=== PATIENT | male | born 1995 ===

== ENCOUNTER → 2023-09-21 | Outpatient (CLI) | payer BC ==
[2023-09-21 19:40] LABS: Prostate Specific Antigen 0.598 ng/mL (0.000-4.000)
== END ==
LOC: LAB SHORT 18:23 → LAB 18:23
PROVIDERS: Hospitalist
DX: Z12.5 Encounter for screening for malignant neoplasm of prostate (principal)
CPT/HCPCS: G0103

== ENCOUNTER → 2024-02-25 | Outpatient (CLI) | payer BC ==
[2024-03-02 17:15] LABS: TESTOSTERONE, FREE BY DIALYSIS 60.4 pg/mL (47.0-244.0); TESTOSTERONE, TOTAL MASS SPEC 240.5 ng/dL (300.0-1080.0)
== END ==
LOC: LAB SHORT 14:47 → LAB 14:47
PROVIDERS: Hospitalist
DX: E29.1 Testicular hypofunction (principal)
CPT/HCPCS: 84402; 84403

== ENCOUNTER → 2025-08-20 | Outpatient (CLI) | payer BC ==
[2025-08-20 20:00] LABS: Anion Gap 7 mmol/L (3-11); Blood Urea Nitrogen 13 mg/dL (8-24); CHOL/HDL RATIO 4.3; CO2, Blood 27 mmol/L (21-32); Calcium, Blood 9.3 mg/dL (8.5-10.1); Chloride, Blood 104 mmol/L (98-108); Cholesterol 159 mg/dL (50-200); Creatinine, Blood 0.78 mg/dL (0.60-1.20); Glucose, Blood 89 mg/dL (70-99); HDL Cholesterol 37 mg/dL (>39); LDL/HDL RATIO 2.5; Low Density Lipoprotein Chol 93 mg/dL (0-110); Potassium, Blood 4.3 mmol/L (3.5-5.5); Sodium, Blood 134 mmol/L (136-145); Thyroid Stimulating Hormone 1.070 uIU/mL (0.360-4.800); Triglycerides 144 mg/dL (30-140); Very Low Density Lipoprot Chol 28 mg/dL (6-28)
== END ==
LOC: LAB 08:20 → LAB SHORT 08:20
PROVIDERS: Hospitalist
DX: I10 Essential (primary) hypertension (principal)
CPT/HCPCS: 80048; 80061; 84443